=== PATIENT | male | born 1990 | race Caucasian/White ===

== ENCOUNTER 2020-04-27 11:58 | Emergency (ER) | payer BC, OTHER ==
[2020-04-27 12:20] VITALS: BP 132/88; PULSE 93
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
[2020-04-27] MEDS ORDERED: Ketorolac 0.5% Ophth Soln 5 ML Bottle EYERT ONE (12:54)
[2020-04-27] MEDS ORDERED: Ciprofloxacin 0.3% Ophth Soln 5 ML Bottle EYERT SCH (15:00)
== END 2020-04-27 13:35 | disposition home or self-care (01) ==
LOC: JD.ED 11:58
DX: S05.01XA Injury of conjunctiva and corneal abrasion without foreign body, right eye, initial encounter (principal); F17.210 Nicotine dependence, cigarettes, uncomplicated; W22.8XXA Striking against or struck by other objects, initial encounter; Z91.030 Bee allergy status
CPT/HCPCS: 99283; A9270

== ENCOUNTER 2020-09-02 16:21 | Emergency (ER) | payer OTHER ==
[2020-09-02 16:37] VITALS: BP 147/86; PULSE 96
--- NOTE | 2020-09-02 16:38 | EDM.PDOC ---
ED HPI GENERAL MEDICAL PROBLEM - General Chief Complaint: Eye Problems Stated Complaint: FB IN RIGHT EYE Time Seen by Provider: 09/02/20 16:37 Source of Information: Reports: Patient History Limitations: Reports: No Limitations - History of Present Illness INITIAL COMMENTS - FREE TEXT/NARRATIVE: 30-year-old male attends the ED with painful right eye and swelling of the right upper lid. He appreciated pain in his right eye yesterday mid afternoon. 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 He states the eye was cooped up a little bit this morning but no obvious pus. He can barely open his eye at this time due to severe pain with light exposure. He does not wear contact lenses or eyeglasses. Pain is constant burning with excessive tearing from the eye and nose. 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) - Related Data Allergies Allergy/AdvReac Type Severity Reaction Status Date / Time venom-honey bee Allergy Swelling Verified 09/02/20 16:38 [bee venom (honey bee)] Past Medical History - Infectious Disease History Infectious Disease History: Reports: Chicken Pox - Past Surgical History HEENT Surgical History: Reports: Adenoidectomy, Tonsillectomy Social & Family History - Family History Family Medical History: No Pertinent Family History - Living Situation & Occupation Living situation: Reports: Single Occupation: Unemployed ED ROS GENERAL - Review of Systems Review Of Systems: See Below Constitutional: Denies: Fever, Chills, Malaise, Weakness, Fatigue, Decreased Appetite, Weight Loss HEENT: Reports: Eye Discharge (White amount of "goop" eyelashes this morning.), Eye Pain (Eye pain for the last 36 hours) Respiratory: Reports: No Symptoms Cardiovascular: Reports: No Symptoms Endocrine: Reports: No Symptoms GI/Abdominal: Reports: No Symptoms : Reports: No Symptoms Musculoskeletal: Reports: No Symptoms Skin: Reports: No Symptoms Neurological: Reports: No Symptoms Psychiatric: Reports: No Symptoms Hematologic/Lymphatic: Reports: No Symptoms Immunologic: Reports: No Symptoms ED EXAM GENERAL W FULL EYE - Physical Exam Exam: See Below Exam Limited By: No Limitations General Appearance: Alert, Mild Distress, Other (Can hardly open his right eye due to his severe light sensitivity. The upper eyelid is obviously swollen and mildly erythematous but not warm to palpation.) Eye Exam: Right Eye: Conjunctival Injection (Mild medial and lateral eye.), Corneal Abrasion (Visible on slit-lamp exam. It travels from 7:00 to 5 o'clock position and up to the mid cornea appears to be likely from a fingernail scratch.), Periorbital Changes (Swelling edema of the upper eyelid.), Bilateral Eye: PERRL Eyelids: Right: Edema, Erythema (Upper lip is mildly edematous and mildly erythematous. Mild upper eyelid), Lid Everted for Exam (No foreign bodies identified.) Conjunctiva & Sclera: Right: Injected (Mildly both medial and lateral conjunctiva.) Cornea Exam: Right: Corneal Abrasion (Fairly large corneal abrasion appreciated on slit-lamp examination from 5:00 to 7 o'clock position and up to the mid cornea. Appears to have the distribution of a fingernail scratch.) Pupils: Normal Accommodation Pupillary Size: Bilateral: 5 mm Pupillary Reaction: Bilateral: Brisk Anterior Chamber: Right: Normal Appearance Course - Vital Signs Last Recorded V/S: Last Vital Signs Temp 36.3 C 09/02/20 16:34 Pulse 96 09/02/20 16:34 Resp 18 09/02/20 16:34 BP 147/86 H 09/02/20 16:34 Pulse Ox 98 09/02/20 16:34 - Orders/Labs/Meds Meds: Medications Discontinued Medications Generic Name Dose Route Start Last Admin Trade Name Freq PRN Reason Stop Dose Admin Ciprofloxacin 5 ml 09/02/20 17:06 Ciloxan 0.3% Ophth Soln EYERT 09/02/20 17:07 ONETIME ONE Ketorolac Tromethamine 3 ml 09/02/20 17:07 Acular 0.5% Ophth Soln EYERT 09/02/20 17:08 ONETIME ONE Proparacaine HCl 15 ml 09/02/20 16:45 09/02/20 16:54 Proparacaine 0.5% Zach Najera EYERT 09/02/20 16:46 15 ml ONETIME ONE Administration - Radiology Interpretation Free Text/Narrative:: 30-year-old male presents to the ED with foreign body sensation right eye for the last 36 hours. 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 I became somewhat tender with foreign body sensation yesterday afternoon and then became worse last night. Today he can barely keep his right eye open at all due to severe light sensitivity. Has foreign body sensation with excessive tearing and persistent burning type pain. On examination no foreign bodies were identified even on everting the right upper eyelid. He does have a fairly large corneal abrasion from the 5:00 to 7 o'clock position and up to the mid cornea on the right side inferiorly. It has the appearance of a fingernail scratch. No signs of infection at this time. Of note he got complete relief of pain with topical proparacaine eyedrops. Plan ketorolac eyedrops 2 drops to the right eye every 6 hours needed for pain relief. Cipro ophthalmic drops 2 drops every 8 hours for 2 through 2 days to prevent secondary infection. If he is not completely back to normal in 36 hours he is to be seen again. Note given to excuse him from the workplace tomorrow as this will take at least 24 hours to heal. Departure - Departure Time of Disposition: 17:04 Disposition: Home, Self-Care 01 Condition: Fair Clinical Impression: Corneal abrasion, right Qualifiers: Encounter type: initial encounter Qualified Code(s): S05.01XA - Injury of conjunctiva and corneal abrasion without foreign body, right eye, initial encounter - Discharge Information *PRESCRIPTION DRUG MONITORING PROGRAM REVIEWED*: Not Applicable *COPY OF PRESCRIPTION DRUG MONITORING REPORT IN PATIENT WILLIAMS: Not Applicable Instructions: Corneal Abrasion Referrals: PCP,None [Primary Care Provider] - Forms: ED Department Discharge, ED Return to Work/School Form Additional Instructions: Evaluation in the emergency room today in regards to persistent right eye pain with severe light sensitivity since yesterday afternoon. Question of getting something in the eye while working under a vehicle and drilling 2 days ago. No recognition of pain after working under the vehicle until the following day. On examination with the slit-lamp there is a large corneal abrasion from the 7:00 to the 5 o'clock position and up to the mid pupil on the right cornea. No foreign bodies were identified in the eye up underneath the eyelid or embedded in the cornea or lower eyelid. Treatment is ketorolac eyedrops 2 drops every 6 hours as needed for pain relief. Antibiotic drops to be Cipro ophthalmic drops 2 drops to the right eye 3 times daily for the next 2 days to prevent secondary infection. Drops to be placed at least 5 minutes apart so as not to wash each other out or cancel each other. You are I will be about 24 hours to heal and will be still sensitive to sunlight for another day after that. Suggest off work tomorrow note will be given in this regard Sepsis Event Note (ED) - Evaluation Sepsis Screening Result: No Definite Risk - Focused Exam Vital Signs: Vital Signs Temp Pulse Resp BP Pulse Ox 09/02/20 16:34 36.3 C 96 18 147/86 H 98
[2020-09-02] MEDS ORDERED: Proparacaine 0.5% Ophth Soln 15 ML Bottle EYERT ONE (16:45)
[2020-09-02] MEDS ORDERED: Ciprofloxacin 0.3% Ophth Soln 5 ML Bottle EYERT ONE (17:06)
[2020-09-02] MEDS ORDERED: Ketorolac 0.5% Ophth Soln 5 ML Bottle EYERT ONE (17:07)
== END 2020-09-02 17:19 | disposition home or self-care (01) ==
LOC: JD.ED 16:21
DX: S05.01XA Injury of conjunctiva and corneal abrasion without foreign body, right eye, initial encounter (principal); Z91.030 Bee allergy status; X58.XXXA Exposure to other specified factors, initial encounter
CPT/HCPCS: 99283; A9270

== ENCOUNTER 2021-11-09 20:24 | Emergency (ER) | payer BC, OTHER ==
[2021-11-09 20:48] VITALS: BP 126/80; PULSE 105
== END 2021-11-09 21:19 | disposition home or self-care (01) ==
LOC: JD.ED 20:24
DX: S01.511A Laceration without foreign body of lip, initial encounter (principal); Z28.310 Unvaccinated for COVID-19; Z91.030 Bee allergy status; Z72.0 Tobacco use; W26.8XXA Contact with other sharp object(s), not elsewhere classified, initial encounter; Y92.009 Unspecified place in unspecified non-institutional (private) residence as the place of occurrence of the external cause
CPT/HCPCS: 99282

== ENCOUNTER 2022-08-12 10:00 | Emergency (ER) | payer BC ==
[2022-08-12 10:14] VITALS: BP 121/77; PULSE 90
[2022-08-12] MEDS ORDERED: Lidocaine 1% 10 ML MDV INJECT ONE (10:34)
== END 2022-08-12 11:45 | disposition home or self-care (01) ==
LOC: JD.ED 10:00
DX: S71.111A Laceration without foreign body, right thigh, initial encounter (principal); Z91.030 Bee allergy status; Z72.0 Tobacco use; W22.8XXA Striking against or struck by other objects, initial encounter; Y92.009 Unspecified place in unspecified non-institutional (private) residence as the place of occurrence of the external cause
CPT/HCPCS: 12002; 99282; J3490

== ENCOUNTER 2024-11-26 12:15 | Emergency (ER) | payer BC ==
[2024-11-26] MEDS: Diphtheria,Pertussis(Acell),Tetanus Vaccine 0.5 ML Syringe IM ONE (12:45)
[2024-11-26] MEDS: Lidocaine 1% 10 ML MDV INJECT ONE (12:45)
[2024-11-26 13:55] VITALS: BP 133/79; PULSE 79
== END 2024-11-26 13:50 | disposition home or self-care (01) ==
LOC: JD.ED 12:15
DX: S61.411A Laceration without foreign body of right hand, initial encounter (principal); F17.200 Nicotine dependence, unspecified, uncomplicated; Z86.16 Personal history of COVID-19; Z91.030 Bee allergy status; W45.8XXA Other foreign body or object entering through skin, initial encounter; Z23 Encounter for immunization
CPT/HCPCS: 12002; 90471; 90715; 99282; J2003